=== PATIENT | female | born 1985 | race American Indian/Alaskan Native ===

== ENCOUNTER 2018-06-16 08:15 | Inpatient (IN) | payer MEDICAID, OTHER, SELFPAY ==
[2018-06-16] MEDS ORDERED: MEPERIDINE HCL 25 MG/0.5 ML IV PRN (08:20)
[2018-06-16] MEDS ORDERED: ZOLPIDEM TARTRATE 5 MG TABLET PO PRN ×2 (08:20→22:17)
[2018-06-16] MEDS ORDERED: PROMETHAZINE 25 MG/ML VIAL IM PRN (08:20)
[2018-06-16] MEDS ORDERED: MAGNES/ALUMIN/SIMET 30ML UCUP PO PRN (08:20)
[2018-06-16] MEDS ORDERED: DIPHENHYDRAMINE 25 MG TAB/CAP PO PRN (08:20)
[2018-06-16] MEDS ORDERED: BUTORPHANOL 1 MG/ML INJ IV PRN (08:20)
[2018-06-16] MEDS ORDERED: METHYLERGONOVINE 0.2MG/ML AMP IM PRN ×2 (08:20→22:17)
[2018-06-16] MEDS ORDERED: MIDAZOLAM HCL 2 MG/2 ML INJ IV PRN (08:20)
[2018-06-16] MEDS ORDERED: Ringers Lactate 1,000 ML IV PRN (08:20)
[2018-06-16 08:57] LABS: RPR Titer ND
[2018-06-16 09:00] LABS: Absolute Lymphocytes (CBC) 1.9 K/uL (0.7-4.9); Absolute Monocytes 0.9 K/uL (0.1-1.3); Absolute Neutrophil 8.9 K/uL (1.8-8.0); Basophils % 0.2 % (0-1.3); Eosinophils % 0.4 % (0-4.4); Hematocrit 34.7 % (36.0-45.0); MCH 24.7 pg (27.0-35.0); MCV 72.9 fL (80-100); MPV 9.2 fL (7.6-11.3); Monocytes % 7.3 % (3.3-12.3); RBC Red Blood Cell Count 4.75 M/uL (3.86-4.86)
[2018-06-16] MEDS ORDERED: Ringers Lactate 1,000 ML IV SCH (09:00)
[2018-06-16] MEDS ORDERED: PENICILLIN 5 MU in NA CHLORIDE 0.9% 100 ML IV ONE (09:05)
[2018-06-16] MEDS ORDERED: PENICILLIN G POT 5 MU/100 ML BAG IV ONE (09:12)
[2018-06-16] MEDS ORDERED: OXYTOCIN/LR 20 UNIT/1,000 ML BAG IV ONE ×2 (09:12→20:45)
[2018-06-16] MEDS ORDERED: OXYTOCIN/LR 20 UNIT/1,000 ML BAG IV SCH ×2 (10:00→23:00)
[2018-06-16] MEDS ORDERED: PENICILLIN 2.5 MU in NA CHLORIDE 0.9% 100 ML IV SCH (13:00)
[2018-06-16] MEDS ORDERED: LIDOCAINE 2% 20 ML MDV IV ONE (13:11)
[2018-06-16] MEDS ORDERED: CARBOPROST TROME 250 MCG/ML IM ONE (13:11)
[2018-06-16] MEDS ORDERED: BUPIVACAINE 0.25% PF 10 ML VIAL IV PRN (13:14)
[2018-06-16] MEDS ORDERED: FENTANYL/BUPIVACAINE/NS/PF 200 MCG/100 ML BAG EP PRN (13:16)
[2018-06-16] MEDS ORDERED: ROPIVACAINE HCL 0.2% 20ML AMP IV SCH (14:00)
[2018-06-16 15:51] VITALS: BMI 31.5
--- NOTE | 2018-06-16 16:46 | PREOPHP ---
Date of Admission: 06/16/2018 This is a 32-year-old primigravida, 37 weeks 6 days, who was out to Labor and Delivery earlier in the morning with suspicion of rupture of membranes, but nitrazine was negative. She was not having any significant contractions, was dismissed, came back several hours later with definite rupture of membr anes, in early labor. She is Rh negative, has received RhoGAM during the . Immune to Rubel la. Strep status is uncertain and therefore we have decided to start penicillin. She has received he r first dose without problems. FHTs are normal, reactive. Vital signs are all stable. Patient is n ow 3-1/2 cm, 70% effaced, vertex, -1 station. There was a bulging bag noted, so we have completed ru pture of membranes, clear fluid. Light Pitocin augmentation is being given. Patient is requesting n atural childbirth. She knows she will not be given any medications unless she asks for it. She is T urk[place] and speaks no Lithuanian, so we are using their cell phone communicator which seems to be working quite well through the entire and today. Labor talk given. CAROL/KRZYSZTOF Voice ID: [id number]
[2018-06-16] MEDS ORDERED: MEPERIDINE HCL 50 MG/ML AMP ONE (19:41)
[2018-06-16] MEDS ORDERED: MIDAZOLAM HCL 2 MG/2 ML INJ ONE (19:51)
[2018-06-16 21:36] LABS: RPR (Rapid Plasma Reagin) NON-REACT (NON-REACT)
[2018-06-16] MEDS ORDERED: Tdap (Diph,Pertuss(Acell),Tet Vac) 0.5 ML SYR IMVAC ONE (22:17)
[2018-06-16] MEDS ORDERED: Oxycodone HCl/Acetaminophen 1 TAB TAB PO PRN ×2 (22:17→22:22)
[2018-06-16] MEDS ORDERED: ONDANSETRON 4 MG/2 ML VIAL IV PRN (22:17)
[2018-06-16] MEDS ORDERED: Rho(D) IG (HUMAN) 300 MCG SYR IM PRN (22:17)
[2018-06-16] MEDS ORDERED: MEASLES,MUMPS,RUBELLA VAC 0.5ML SUBQ ONE (22:17)
[2018-06-16] MEDS ORDERED: DOCUSATE NA/SENNA CONC 1 TAB PO PRN (22:17)
[2018-06-16] MEDS ORDERED: ACETAMINOPHEN 500 MG TAB PO PRN (22:17)
[2018-06-16] MEDS ORDERED: METHYLERGONOVINE 0.2 MG TAB PO PRN (22:22)
--- NOTE | 2018-06-16 23:08 | PN ---
The patient has now progressed to 6.5 cm, 90% effaced, vertex, 0 station, lynn every 2 minutes . She is on 18 milliunits of Pitocin. FHTs reasonable. She has had 2 doses of Stadol, but even wit h that the variability is good. Vital signs are all normal. She has had 2 doses of penicillin. I t hink, we are getting into the active phase now should she have more rapid progress. CAROL/KRZYSZTOF Voice ID: [id number] Report ID: [id number]
[2018-06-16] MEDS ORDERED: MEPERIDINE HCL 50 MG/ML AMP IV ONE (23:53)
[2018-06-17] MEDS: IBUPROFEN 200 MG TAB PO PRN ×3 (01:30→21:45)
--- NOTE | 2018-06-17 04:24 | OP ---
Hospital Course: A 32-year-old, primigravida, of [place] descent, 37 weeks 6 days, came in with spon taneous rupture of membranes, early labor. Rh negative. Has received RhoGAM during the . Immune to Rubella. Beta strep status unknown. It was decided to start penicillin. She received 3 d oses during the labor. Stadol 1 mg IV, Phenergan 25 mg IM twice during the labor. Otherwise Lamaze breathing techniques. Second stage of approximately an hour to an hour and 15 minutes. Spontaneous vaginal delivery of a 6 pounds 10 ounce female, Apgars 9 and 9. Midline second degree laceration wit h bilateral sulcus extension and shape of Y, all sutured with 2-0 chromic after local infiltration, 5 0 mg of Demerol IV after delivery of the baby, clamping the cord. Schultze delivery of the placenta, inspected, noted to be intact and normal, 350 cc or less blood loss. Final Diagnoses: Intrauterine gestation, 37 weeks 6 days. Rupture of membranes, vaginal delivery, p enicillin prophylaxis. RhoGAM pending. CAROL/KRZYSZTOF Voice ID: [id number] Report ID: [id number]
--- NOTE | 2018-06-18 04:46 | DS ---
Hospital Course: This is a 32-year-old [place] female, primigravid, at 37 weeks 6 days, experienced spontaneous rupture of membranes. Labor augmentation was performed. She delivered a 6 pound 10 ounc e female, Apgars 9 and 9. Second degree midline laceration; 2-0 chromic repair, local infiltration. Stadol IV during the labor. Demerol 50 mg one time. After delivery of the baby clamping the cord. Penicillin prophylaxis given x3 doses. ; afebrile, ambulating, voiding. Lochia is normal . She will be dismissed later today or tomorrow morning to report back to my office in 6 weeks for f zia. Report any temperature elevation of 100 degrees or greater, severe pain, heavy bleeding, or any other type of abnormalities. Dismissed with tramadol for analgesia, although she may elect to t jonah Motrin instead. She has had her Tdap administered during the . Final Diagnoses: Term intrauterine , at 37 weeks 6 days, premature rupture of membranes. L abor and Delivery. Penicillin prophylaxis. RhoGAM administered. CAROL/KRZYSZTOF Voice ID: [id number] Report ID: [id number]
[2018-06-18 08:36] VITALS: BP 110/60; TEMP 97.4
[2018-06-19 03:24] LABS: HBsAG Nonreactive (Nonreactive)
== END 2018-06-18 11:10 | disposition home or self-care (01) | DRG 775 ==
LOC: L&D 08:15 → 2ND-WC 08:23
PROVIDERS: ADMIT Specialist; ATTEND Specialist
PROC: 0KQM0ZZ Repair Perineum Muscle, Open Approach (ICD-10-PCS; principal; 2018-06-16)
PROC: 3E0234Z Introduction of Serum, Toxoid and Vaccine into Muscle, Percutaneous Approach (ICD-10-PCS; 2018-06-16)
DX: O70.1 Second degree perineal laceration during delivery (principal); Z37.0 Single live birth; O36.0930 Maternal care for other rhesus isoimmunization, third trimester, not applicable or unspecified; Z3A.37 37 weeks gestation of pregnancy; Z23 Encounter for immunization
CPT/HCPCS: 36415; 85025; 85461; 86592; 86850; 86901; 87340; 99218; J0595; J2175; J2210; J2250; J2550; J2590; J2790